=== PATIENT | male | born 1935 | race Caucasian/White ===

== ENCOUNTER 2017-02-02 19:47 | Inpatient (IN) | payer MEDICARE ==
[~2017-02-02] VITALS: Ht 182.9 cm; Wt 91.4 kg
[~2017-02-02 19:47] MED LIST: ALBUTEROL SULFAT3 M3 IH; ASPIRIN 32325 MG/TA1 PO; ASPIRIN 81M81 MG/TA2 PO; BIPAP; COUMADIN 5MG5 MG/TAB PO; COZAAR100 MG PO; IMDUR 30MG30 MG/TAB PO; LASIX 80MG TABL80 MG PO; LIPITOR 10MG10 MG PO; MULTI VITAMINS1 TAB PO; NITROSTAT0.4 MG/TAB SL; NORCO 325 MG-51 TAB PO; SINGULAIR 110 MG/TAB PO; VENTOLIN0.09 MG IH; VITAMIN D31000 IU PO
[2017-02-02 20:36] LABS: BASO % 0.3 % (0.0-2.0); EOS # 0.6 (0.0-0.7); EOS % 6.7 % (0-4.0); GRAN # 6.5 (1.4-6.5); GRAN % 71.3 % (42.2-75.2); LYMPH # 0.9 (1.2-3.4); LYMPH % 9.7 % (20.0-51.0); MEAN CELL VOLUME 89 fl (80.0-100.0); MEAN CORPUSCULAR HGB CONC 33 g/dl (33.0-37.0); MEAN PLATELET VOLUME 12.2 fl (7.4-10.4); MONO % 11.3 % (1.7-9.3); PLATELET COUNT 110 K/mm3 (130-400); RED BLOOD COUNT 3.76 M/mm3 (4.20-5.60); REDCELL DISTRIBUTION WIDTH-CV 12.9 % (11.5-14.5); WHITE BLOOD COUNT 9.2 K/mm3 (4.8-10.8)
[2017-02-02 20:37] LABS: INR 1.7 (0.8-3.0); PROTHROMBIN TIME 18.9 SECONDS (9.7-12.8)
[2017-02-02 20:38] LABS: ALBUMIN 3.7 gm/dL (3.5-5.0); BILIRUBIN,TOTAL 1.3 mg/dL (0.0-1.0); CALCIUM 8.8 mg/dL (8.4-10.2); CREATININE, serum 1.99 mg/dL (0.66-1.25); TOTAL PROTEIN 6.2 gm/dL (6.4-8.2)
[2017-02-02 20:41] LABS: HEMATOCRIT 33.4 % (42.0-52.0); HEMOGLOBIN 11.1 g/dl (13.5-18.0); MEAN CORPUSCULAR HEMOGLOBIN 30 pg (27.0-31.0)
[2017-02-02] MEDS ORDERED: LEXAPRO 10MG10 MG PO (23:25)
[2017-02-02] MEDS ORDERED: MIRALAX PA17 GM/Dose PO (23:25)
[2017-02-02] MEDS ORDERED: MULTI VITAMINS1 TAB PO (23:26)
[2017-02-02] MEDS ORDERED: PEPCID 20MG TAB20 MG PO (23:27)
[2017-02-02] MEDS ORDERED: NITROSTAT0.4 MG/TAB SL (23:27)
[2017-02-02] MEDS ORDERED: ALDACTONE 25MG25 M1 PO (23:28)
[2017-02-02] MEDS ORDERED: PREDNISONE 5MG5 MG PO (23:28)
[2017-02-02] MEDS ORDERED: OXYGEN MC ×2 (23:29→23:30)
[2017-02-02] MEDS ORDERED: BIPAP (23:29)
[2017-02-02 23:34] VITALS: BP 120/45; PULSE 100; TEMP 98.9
[2017-02-03 00:26] LABS: PARTIAL THROMBOPLASTIN TIME 34.3 SECONDS (26.0-37.0)
[2017-02-03 02:26] VITALS: BP 112/65; PULSE 95; TEMP 98.3
[2017-02-03 05:00] VITALS: BP 106/60; PULSE 91; TEMP 98.2
[2017-02-03 09:36] LABS: INR 1.7 (0.8-3.0); PROTHROMBIN TIME 19.2 SECONDS (9.7-12.8)
[2017-02-03 09:42] VITALS: BP 107/51; PULSE 77; TEMP 97.9
[2017-02-03 09:58] LABS: CALCIUM 8.7 mg/dL (8.4-10.2); CREATININE, serum 1.8 mg/dL (0.66-1.25); POTASSIUM 3.4 mmol/L (3.4-5.0)
[2017-02-03 13:32] LABS: HYALINE CAST >12 /lpf; PH 5 (5-8); SQUAMOUS EPITHELIAL 0-2 /hpf; URINE APPEARANCE Hazy; URINE BACTERIA None Seen /hpf; URINE BILIRUBIN Negative (NEGATIVE); URINE BLOOD 3+ (NEGATIVE); URINE COLOR Yellow; URINE GLUCOSE Negative (NEGATIVE); URINE KETONE Negative (NEGATIVE); URINE RBC >50 /hpf; URINE UROBILINOGEN Negative (NEGATIVE)
[2017-02-03 13:33] LABS: URINE WBC >50 /hpf
[2017-02-03 13:57] VITALS: BP 106/50; PULSE 75
[2017-02-03 17:39] LABS: ALBUMIN 3.4 gm/dL (3.5-5.0); BILIRUBIN,TOTAL 1.2 mg/dL (0.0-1.0); CALCIUM 8.5 mg/dL (8.4-10.2); CREATININE, serum 1.59 mg/dL (0.66-1.25); TOTAL PROTEIN 5.8 gm/dL (6.4-8.2)
[2017-02-03 17:42] VITALS: BP 130/60; PULSE 76
[2017-02-03 19:27] LABS: INR 1.6 (0.8-3.0); PROTHROMBIN TIME 17.6 SECONDS (9.7-12.8)
[2017-02-03 22:00] VITALS: BP 119/53; PULSE 80; TEMP 98.4
[2017-02-04] VITALS (12 sets, daily range): BP systolic 106–129; BP diastolic 42–69; PULSE 63–89; TEMP 97.6–98.9
[2017-02-04 07:54] LABS: MEAN CORPUSCULAR HGB CONC 32 g/dl (33.0-37.0); MEAN PLATELET VOLUME 12.7 fl (7.4-10.4); PLATELET COUNT 89 K/mm3 (130-400); RED BLOOD COUNT 3.03 M/mm3 (4.20-5.60); REDCELL DISTRIBUTION WIDTH-CV 13.2 % (11.5-14.5); WHITE BLOOD COUNT 7.2 K/mm3 (4.8-10.8)
[2017-02-04 07:59] LABS: INR 1.6 (0.8-3.0); PROTHROMBIN TIME 17.6 SECONDS (9.7-12.8)
[2017-02-04 08:04] LABS: HEMATOCRIT 28.5 % (42.0-52.0); HEMOGLOBIN 9.1 g/dl (13.5-18.0); MEAN CELL VOLUME 94 fl (80.0-100.0); MEAN CORPUSCULAR HEMOGLOBIN 30 pg (27.0-31.0)
[2017-02-04 08:25] LABS: CALCIUM 7.5 mg/dL (8.4-10.2); CREATININE, serum 1.14 mg/dL (0.66-1.25); MAGNESIUM 2.4 mg/dL (1.6-2.3)
[2017-02-05 01:30] VITALS: BP 117/58; PULSE 87; TEMP 98.3
[2017-02-05 05:22] VITALS: BP 115/61; PULSE 84; TEMP 97.5
[2017-02-05 06:34] LABS: CALCIUM 8.5 mg/dL (8.4-10.2); CREATININE, serum 1.11 mg/dL (0.66-1.25); POTASSIUM 4.6 mmol/L (3.4-5.0)
[2017-02-05 06:35] LABS: INR 1.3 (0.8-3.0); PROTHROMBIN TIME 14.8 SECONDS (9.7-12.8)
[2017-02-05 06:43] LABS: MEAN CELL VOLUME 95 fl (80.0-100.0); MEAN CORPUSCULAR HGB CONC 31 g/dl (33.0-37.0); MEAN PLATELET VOLUME 13.1 fl (7.4-10.4); PLATELET COUNT 85 K/mm3 (130-400); RED BLOOD COUNT 2.84 M/mm3 (4.20-5.60); REDCELL DISTRIBUTION WIDTH-CV 13.1 % (11.5-14.5); WHITE BLOOD COUNT 11.8 K/mm3 (4.8-10.8)
[2017-02-05 06:47] LABS: HEMATOCRIT 27.1 % (42.0-52.0); HEMOGLOBIN 8.5 g/dl (13.5-18.0); MEAN CORPUSCULAR HEMOGLOBIN 30 pg (27.0-31.0)
[2017-02-05 09:40] VITALS: BP 119/41; PULSE 63; TEMP 98.1
[2017-02-05 13:54] VITALS: BP 128/68; PULSE 78
[2017-02-05 17:16] VITALS: BP 144/99; PULSE 118; TEMP 98.1
[2017-02-05 21:41] VITALS: BP 126/58; PULSE 90; TEMP 98.1
[2017-02-06] VITALS (8 sets, daily range): BP systolic 108–126; BP diastolic 43–79; PULSE 67–87; TEMP 97.7–97.8
[2017-02-06 06:50] LABS: HEMATOCRIT 25.1 % (42.0-52.0); HEMOGLOBIN 7.9 g/dl (13.5-18.0)
[2017-02-06 06:54] LABS: INR 1.4 (0.8-3.0); PROTHROMBIN TIME 16.2 SECONDS (9.7-12.8)
[2017-02-06] MEDS ORDERED: TYLENOL 325MG325 MG PO (09:24)
[2017-02-06] MEDS ORDERED: NORCO 325 MG-7.1 TAB PO (09:24)
[2017-02-06] MEDS ORDERED: LOVENOX 3030 MG/0.3 SQ (10:54)
[2017-02-06] MEDS ORDERED: ALDACTONE 25MG25 M1 PO (10:55)
[2017-02-06] MEDS ORDERED: FERROUS SU325 MG/TAB PO (10:56)
== END 2017-02-06 15:38 | disposition swing bed (61) | DRG 481 ==
LOC: COL.ER 19:47 → SURG 20:51 → JCC 20:51
PROVIDERS: Emergency Medicine; Family Medicine; Internal Medicine; Nurse Practitioner Family; Orthopaedic Surgery
PROC: 0QS706Z Reposition Left Upper Femur with Intramedullary Internal Fixation Device, Open Approach (ICD-10-PCS; principal; 2017-02-04 14:00)
DX: S72.142A Displaced intertrochanteric fracture of left femur, initial encounter for closed fracture (principal); N17.9 Acute kidney failure, unspecified; E87.1 Hypo-osmolality and hyponatremia; I50.22 Chronic systolic (congestive) heart failure; E87.6 Hypokalemia; N18.3 Chronic kidney disease, stage 3 (moderate); W18.30XA Fall on same level, unspecified, initial encounter; J44.9 Chronic obstructive pulmonary disease, unspecified; Z95.2 Presence of prosthetic heart valve; I25.10 Atherosclerotic heart disease of native coronary artery without angina pectoris; F03.90 Unspecified dementia, unspecified severity, without behavioral disturbance, psychotic disturbance, mood disturbance, and anxiety; D50.0 Iron deficiency anemia secondary to blood loss (chronic); I48.2 Chronic atrial fibrillation; Z79.01 Long term (current) use of anticoagulants; E87.5 Hyperkalemia
CPT/HCPCS: 99223-AI; 99232-AI; 99233-AI; 99239; A9284; C1713; J0690; J1100; J1170; J1644; J1650; J1940; J2250; J2270; J2405; J2704; J3010; J7030; J7512; P9016

== ENCOUNTER 2019-05-03 08:00 | Day surgery (SDC) | payer MEDICARE ==
[2019-05-03] VITALS (8 sets, daily range): BP systolic 136–156; BP diastolic 53–68; PULSE 54–77; TEMP 97.3–98
[~2019-05-03] VITALS: Ht 182.9 cm; Wt 110.0 kg
[~2019-05-03 08:00] MED LIST changes: +00186-0370-20 IH; +ALBUTEROL0.83 MG/ML IH; +ALDACTONE 25MG25 M1 PO; +CEPHALEXIN500 M1 PO; +FENTANYL 50MCG TD; +FERROUS SU325 MG/TAB PO; +GOOD NEIGH1200 MG/15 PO; +KETAPROFEN TOP; +LASIX 40MG TABL40 MG PO; +LEXAPRO 10MG10 MG PO; +LINZESS290CAP PO; +LOVENOX 3030 MG/0.3 SQ; +LOVENOX 8080 MG/0.8 SQ; +MIRALAX PA17 GM/Dose PO; +NORCO 325 MG-101 TAB PO; +NORCO 325 MG-7.1 TAB PO; +OXYGEN MC; +PACERONE400 MG PO; +PEPCID 20MG TAB20 MG PO; +PREDNISONE 5MG5 MG PO; +ROXICODONE 55 MG/TAB PO; +THERA TABS1 TAB PO; +TYLENOL 325MG325 MG PO; +ZAROXOLYN 2.52.5 MG PO
[2019-05-03 09:01] LABS: HEMOGLOBIN 11.6 g/dl (13.5-18.0); MEAN CELL VOLUME 96 fl (80.0-100.0); MEAN CORPUSCULAR HEMOGLOBIN 31 pg (27.0-31.0); MEAN CORPUSCULAR HGB CONC 32 g/dl (33.0-37.0); MEAN PLATELET VOLUME 10.3 fl (7.4-10.4); PLATELET COUNT 177 K/mm3 (130-400); RED BLOOD COUNT 3.74 M/mm3 (4.20-5.60); REDCELL DISTRIBUTION WIDTH-CV 14.6 % (11.5-14.5)
[2019-05-03 09:06] LABS: INR 1.9 (0.8-3.0); PROTHROMBIN TIME 22.9 SECONDS (9.7-12.8)
[2019-05-03 09:15] LABS: CALCIUM 9.6 mg/dL (8.4-10.2); CREATININE, serum 1.11 (0.66-1.25); POTASSIUM 4.1 mmol/L (3.4-5.0)
[2019-05-03] MEDS ORDERED: COUMADIN4 MG PO (09:16)
[2019-05-03] MEDS ORDERED: MIRALAX PA17 GM/Dose PO (09:20)
[2019-05-03] MEDS ORDERED: PACERONE200 MG PO (11:00)
--- NOTE | 2019-05-03 12:59 | NUR ---
INT discontinued intact. Discharge paperwork given to aide. Transferred to private wc by [facility] and 2 assist.
== END 2019-05-03 13:00 | disposition home or self-care (01) ==
LOC: COL.CAR 08:00
PROVIDERS: Internal Medicine Cardiovascular Disease
DX: I48.91 Unspecified atrial fibrillation (principal); I13.0 Hypertensive heart and chronic kidney disease with heart failure and stage 1 through stage 4 chronic kidney disease, or unspecified chronic kidney disease; I50.22 Chronic systolic (congestive) heart failure; N18.9 Chronic kidney disease, unspecified; I34.0 Nonrheumatic mitral (valve) insufficiency; I25.10 Atherosclerotic heart disease of native coronary artery without angina pectoris; J45.909 Unspecified asthma, uncomplicated; G47.33 Obstructive sleep apnea (adult) (pediatric); I27.20 Pulmonary hypertension, unspecified; G89.29 Other chronic pain; M19.90 Unspecified osteoarthritis, unspecified site; D63.1 Anemia in chronic kidney disease; Z95.2 Presence of prosthetic heart valve; Z79.52 Long term (current) use of systemic steroids; Z87.891 Personal history of nicotine dependence
CPT/HCPCS: J2704